=== PATIENT | female | born 1940 | race Caucasian/White ===

== ENCOUNTER 2018-08-06 17:15 | Inpatient (IN) | payer MEDICARE, BC | END 2018-08-11 15:35 | LOC: ER 17:15 → ED HOLD 21:19 → ORTHO 4S 08-07 20:00 | PROC: 0QSB34Z Reposition Right Lower Femur with Internal Fixation Device, Percutaneous Approach (ICD-10-PCS; principal; 2018-08-07 17:04) | DX: S72.001A Fracture of unspecified part of neck of right femur, initial encounter for closed fracture (principal); H83.02 Labyrinthitis, left ear; H81.12 Benign paroxysmal vertigo, left ear ==

== ENCOUNTER 2022-01-03 08:47 | Inpatient (IN) | payer MEDICARE, BC ==
[2022-01-01 15:05] LABS: BASOPHILS % (AUTO) 0.6 % (0-1); EOSINOPHILS % (AUTO) 0.2 % (0-6); LYMPHOCYTES # (AUTO) 1.3 X10'3 (1.1-4.8); LYMPHOCYTES % (AUTO) 35.3 % (21-51); MEAN CORPUSCULAR HEMOGLOBIN 29.7 PG (27.0-31.0); MEAN CORPUSCULAR HGB CONC 34.4 g/dL (33.0-36.5); MEAN CORPUSCULAR VOLUME 86.5 FL (78-98); MEAN PLATELET VOLUME 8.4 FL (7.4-10.4); MONOCYTES # (AUTO) 0.8 X10'3 (0-0.9); MONOCYTES % (AUTO) 20.6 % (2-12); NEUTROPHILS # (AUTO) 1.6 X10'3 (1.8-7.7); NEUTROPHILS % (AUTO) 43.3 % (42-75); PRE OP HEMOGLOBIN 14.1 g/dL (12.0-16.0); PRE OP PLATELET COUNT 175 X10'3 (140-440); RED BLOOD COUNT 4.75 X10'6 (4.20-5.60); RED CELL DISTRIBUTION WIDTH 13.4 % (11.5-14.5)
[2022-01-01 15:22] LABS: ALBUMIN 3.9 G/DL (3.4-5.0); ALBUMIN/GLOBULIN RATIO 1.1 (1.1-1.5); ALKALINE PHOSPHATASE 66 IU/L (46-116); BLOOD UREA NITROGEN 15 MG/DL (7-18); BUN/CREATININE RATIO 25.4 (6.6-38.0); CHLORIDE 103 MMOL/L (99-107); CREATININE 0.59 MG/DL (0.40-0.90); PRE OP ALT 17 U/L (30-65); PRE OP ANION GAP 10 (8-16); PRE OP AST 17 U/L (10-37); PRE OP BILIRUB, TOTAL 0.4 MG/DL (0.0-1.0); PRE OP GLUCOSE 108 MG/DL (70-104); PRE OP POTASSIUM 3.4 MMOL/L (3.4-5.1); PRE OP SODIUM 138 MMOL/L (135-145); TOTAL CARBON DIOXIDE 24.9 MMOL/L (24-32); TOTAL PROTEIN 7.3 G/DL (6.4-8.2); eGFR > 90 ML/MIN
[~2022-01-03] VITALS: Ht 152.4 cm; Wt 60.0 kg
[2022-01-03] VITALS (11 sets, daily range): BP systolic 125–151; BP diastolic 66–95
[~2022-01-03 08:47] MED LIST: ACET-812 PO; CHOL10002 PO; HYDROcodone/acetaminophen 10/325mg tab PO PRN; HYDROmorphone 1 mg/ml syringe IV PRN; HYDROmorphone inj. 0.5 MG/0.5 ML DISP.SYRIN IV PRN; LEVO75TA PO; ROPIVAcaine 0.5% (5mg/ml) 30ml vial ONE; ROSU5TAB PO; acetaminophen 325mg tablet PO ONE; acetaminophen 325mg tablet PO PRN; bisacodyl 10mg suppository rectal RC PRN; ceFAZolin inj. 2,000 MG in dextrose 5%-water 100 ML IV ONE; celeCOXIB 100mg capsule PO ONE; diphenhydrAMINE 25mg capsule PO PRN; epiNEPHrine 1 mg/ml inj ONE; famotidine 20mg tablet PO ONE; gabapentin 300mg capsule PO ONE; ketorolac trometh. 30mg/ml inj. ONE; magnesium hydroxide 30ml (MOM) UD suspension PO PRN; metoclopramide 5 mg/ml inj IV ONE; naloxone 0.4 mg/ml inj IV PRN; oxyCODONE SR 10mg (sust. release) tab -2 tabs (20mg) PO ONE; ringers solution, lacted 1,000 ML IV SCH; tranexamic acid inj. 1,000 MG in 0.7% saline 100 ML PMX IV ONE; vancomycin 1,000mg inj ONE; vancomycin/NS 1 GM in NS 250 ML IV ONE
--- NOTE | 2022-01-03 09:45 | NUR ---
PT PREPPED FOR SURGERY, IV STARTED IN RIGHT HAND, MULTIPLE SMALL RASHES, LESIONS NOTED ON BOTH ARMS AND OPERATIVE LEG. NO OPEN AREAS. PEDAL PULSES MARKED, BILATERAL LEGS ARE PALE, WARM AND DRY, SENSATION INTACT. PT USES A WALKER TO AMBULATE. AT BEDSIDE. PT IS ALLERGIC TO VANCOMYCIN AND PCN, PHYSICIAN AND ANESTHESIOLOGIST NOTIFIED, AWAITING ORDERS
--- NOTE | 2022-01-03 10:45 | NUR ---
CALLED INTO THE OPERATING ROOM AFTER SPEAKING TO WILLY THE OR CHARGE NURSE, SPOKE WITH TAYLOR KENNEDY, NOTIFIED HER OF THIS PATIENTS ALLERGIES AND REQUESTED NEW ANTIBIOTIC ORDERS, AWAITING ORDERS
--- NOTE | 2022-01-03 11:26 | NUR ---
ORDERS RECEIVED TO ADMINISTER PREOP VANCO AND TO SEND ANCEF TO THE OPERATING ROOM. VANCO STARTED, SIGNS AND SYMPTOMS OF REACTION GIVEN TO PATIENT AND . INFORMED THEM TO NOTIFIY ME IMMEDIATELY IF SHE HAS ANY SIGNS OF AN ALLERGIC REACTION
[2022-01-03] MEDS ORDERED: ROPIVAcaine 0.5% (5mg/ml) 30ml vial ONE (12:32)
--- NOTE | 2022-01-03 12:45 | NUR ---
PAATIENT SEEN BY ALL PARTIES, OXYCODONE GIVEN AFTER CONSENTS SIGNED
[2022-01-03] MEDS ORDERED: fentaNYL/PF 50MCG/1 ML 2ML syringe ONE (12:57)
[2022-01-03] MEDS ORDERED: MIDAZolam 1 MG/ML 5ML VIAL ONE (12:58)
[2022-01-03] MEDS ORDERED: ondansetron/PF 4mg/2ml inj IV PRN (13:45)
[2022-01-03] MEDS ORDERED: morphine 4 MG/ML inj SYRINge IV PRN (13:45)
[2022-01-03] MEDS ORDERED: morphine 2 MG/ML inj. syringe IV PRN (13:45)
[2022-01-03] MEDS ORDERED: ROPIVAcaine 0.2% (10 MG/5 ML) BOLUS INJECTION ADDCANAL PRN (13:45)
[2022-01-03] MEDS ORDERED: meperidine/PF 25mg/ml syringe IV PRN ×3 (13:45)
[2022-01-03] MEDS ORDERED: proCHLORperazine 10 MG/2 ml inj IV PRN (13:45)
[2022-01-03] MEDS ORDERED: ringers solution, lacted 1,000 ML IV SCH (13:45)
--- NOTE | 2022-01-03 14:46 | NUR ---
PT ARRIVES FROM OR ON HOSPITAL BED. REPORT FROM BUCKY GANDHI, AAOX4 WITH NO COMPLAINTS OF PAIN. VSS. RIGHT KNEE DRESSING CLEAN DRY AND INTACT. ICE ON SURGICAL KNEE. PT VERBALIZING NEEDS. Addendum: 01/03/22 at 1504 by Justin Herrera RN Amended: Links added.
--- NOTE | 2022-01-03 15:50 | NUR ---
received report from BRENT Anderson. awaiting patient arrival.
[2022-01-03] MEDS ORDERED: ceFAZolin/D5W- 1GM premix 50 ML IV SCH (16:00)
--- NOTE | 2022-01-03 16:00 | NUR ---
Patient arrived to floor. VSS. no complaints of pain.
--- NOTE | 2022-01-03 16:06 | NUR ---
Report called to receiving nurse IGOR KENNEDY. Transferred via HOSPITAL BED, ALL BELONGINGS WITH PT UPON DELIVERY. AT BEDSIDE. PT DENIES PAIN, VSS. CALL LIGHT WITHIN REACH AND BED LOW. RECEIVING STAFF AT BEDSIDE TO RECEIVE PT. Special Issues communicated to receiving nurse. Addendum: 01/03/22 at 1619 by Justin Herrera RN Amended: Links added.
[2022-01-03] MEDS: potassium cl 20mEq in 1/2 NS 1,000 ML IV SCH ×3 (16:44→17:58)
[2022-01-03] MEDS: ROPIVAcaine 0.2%/PF PUMP/bolus 545 ML ADDCANAL SCH (17:16)
[2022-01-03] MEDS ORDERED: tranexamic acid inj. 600 MG in normal saline 100ml IV soln 94 ML IV ONE (18:00)
--- NOTE | 2022-01-03 18:21 | NUR ---
Problems reprioritized. Patient report given, questions answered & plan of care reviewed with BRENT Franklin.
[2022-01-03] MEDS ORDERED: vancomycin/NS 1 GM ADD-VANTAGE 250 ML IV SCH (20:00)
[2022-01-03] MEDS: ascorbic acid 500mg tablet PO SCH (20:31)
[2022-01-03] MEDS: sennosides 8.6mg tablet PO SCH (20:31)
[2022-01-03] MEDS: celeCOXIB 100mg capsule PO SCH (20:31)
[2022-01-03] MEDS: gabapentin 300mg capsule PO SCH (20:31)
[2022-01-03] MEDS: ceFAZolin/D5W- 1GM premix 50 ML IV SCH (22:23)
[2022-01-03] MEDS: HYDROcodone/acetaminophen 10/325mg tab PO PRN (22:37)
[2022-01-04 02:00] VITALS: BP 144/60
[2022-01-04] MEDS: ondansetron/PF 4mg/2ml inj IV PRN ×2 (02:12→08:49)
[2022-01-04] MEDS: ceFAZolin/D5W- 1GM premix 50 ML IV SCH (05:15)
[2022-01-04] MEDS: potassium cl 20mEq in 1/2 NS 1,000 ML IV SCH ×2 (05:15→16:26)
[2022-01-04] MEDS: HYDROcodone/acetaminophen 10/325mg tab PO PRN (05:18)
--- NOTE | 2022-01-04 06:16 | NUR ---
Received patient report from BRENT Franklin.
--- NOTE | 2022-01-04 06:30 | NUR ---
Rec'd report from JUDD Landa, jay/ opportunity to ask and answer questions.
--- NOTE | 2022-01-04 07:10 | NUR ---
At bedside w/ Syeda, SUPERVISOR [employer] MACHINE, and concur w/ shift assessment as documented.
[2022-01-04 07:42] LABS: BASOPHILS % (AUTO) 0.2 % (0-1); EOSINOPHILS % (AUTO) 0.2 % (0-6); HEMATOCRIT 38.7 % (35.0-45.0); HEMOGLOBIN 13.4 g/dl (12.0-16.0); LYMPHOCYTES # (AUTO) 0.6 X10'3 (1.1-4.8); LYMPHOCYTES % (AUTO) 13.4 % (21-51); MEAN CORPUSCULAR HEMOGLOBIN 30.3 PG (27.0-31.0); MEAN CORPUSCULAR HGB CONC 34.6 g/dL (33.0-36.5); MEAN CORPUSCULAR VOLUME 87.5 FL (78-98); MEAN PLATELET VOLUME 8.6 FL (7.4-10.4); MONOCYTES # (AUTO) 1.1 X10'3 (0-0.9); NEUTROPHILS # (AUTO) 2.9 X10'3 (1.8-7.7); NEUTROPHILS % (AUTO) 63.2 % (42-75); PLATELET COUNT 136 X10'3 (140-440); RED BLOOD COUNT 4.42 X10'6 (4.20-5.60); RED CELL DISTRIBUTION WIDTH 13.5 % (11.5-14.5); WHITE BLOOD COUNT 4.6 X10'3 (4.5-11.0)
[2022-01-04 07:58] LABS: ANION GAP 8 (8-16); CHLORIDE 103 MMOL/L (99-107); SODIUM 136 MMOL/L (135-145); TOTAL CARBON DIOXIDE 24.8 MMOL/L (24-32)
[2022-01-04 08:31] LABS: PLATELET ESTIMATE DECREASED; TOTAL CELLS COUNTED 100
[2022-01-04] MEDS: celeCOXIB 100mg capsule PO SCH ×2 (08:58→20:14)
[2022-01-04] MEDS: atorvastatin 20mg tablet PO SCH (08:58)
[2022-01-04] MEDS: multivitamins, therapeutics tablet PO SCH (08:58)
[2022-01-04] MEDS: gabapentin 300mg capsule PO SCH ×3 (08:58→20:13)
[2022-01-04] MEDS: levoTHYROXINE 75mcg tablet PO SCH (08:58)
[2022-01-04] MEDS: ascorbic acid 500mg tablet PO SCH ×2 (08:59→20:13)
[2022-01-04] MEDS: aspirin 325mg tablet PO SCH (09:01)
[2022-01-04 10:00] VITALS: BP 147/67
--- NOTE | 2022-01-04 10:46 | NUR ---
Joint surgery consult: Pt s/p R knee surgery this admit per EMR. Pt/SO seen by STONEY for written/verbal high protein diet ed w/ RD contact information provided. RD encouraged pt/SO to contact dietitian's office if further questions/concerns. Addendum: 01/04/22 at [address] Amended: Links added. Addendum: 01/04/22 at [address] Joint surgery consult: Pt s/p R knee surgery this admit per EMR. Pt/SO seen by STONEY for written/verbal high protein diet ed w/ RD contact information provided. RD encouraged pt/SO to contact dietitian's office if further questions/concerns. Pt does report nausea this AM requests broth, crackers, applesauce, and fresh fruit [facility] today; dietary notified.
[2022-01-04] MEDS ORDERED: proCHLORperazine 10 MG/2 ml inj IV PRN (11:45)
[2022-01-04] MEDS ORDERED: normal saline 500ml IV soln 1,000 ML IV ONE (14:20)
--- NOTE | 2022-01-04 14:20 | NUR ---
Assessed patient after staff returned her to bed. Hypotensive 90/54. Patient asked if she had a stroke. Neuro assessment negative for deficits. 250ml NS fluid bolus initiated per shock protocol. Will reassess.
--- NOTE | 2022-01-04 16:15 | NUR ---
Reassess patient with RN with BP of 137/64 and HR of 81, NS IV fluid running at 50ml. Physical therapy tried to work with patient who needed extensive assist to sit on the side of bed. Patient denied being nauseated and did not want to walk, stating she was tired. Wick was placed after attempting to use the bed [place] with no success.
[2022-01-04 18:00] VITALS: BP 138/79
--- NOTE | 2022-01-04 18:20 | NUR ---
Patient in room ORTHO 4013. I have received report from JUDD Landa and had the opportunity to ask questions and assume patient care.
--- NOTE | 2022-01-04 18:25 | NUR ---
Patient report was given to BRENT Garcia.
[2022-01-04] MEDS: sennosides 8.6mg tablet PO SCH (20:13)
[2022-01-04 22:00] VITALS: BP 131/72
[2022-01-05 06:00] VITALS: BP 136/76
[2022-01-05 06:38] LABS: BASOPHILS % (AUTO) 0.2 % (0-1); EOSINOPHILS % (AUTO) 0.2 % (0-6); HEMATOCRIT 34.8 % (35.0-45.0); HEMOGLOBIN 12.3 g/dl (12.0-16.0); LYMPHOCYTES # (AUTO) 1.2 X10'3 (1.1-4.8); LYMPHOCYTES % (AUTO) 20.2 % (21-51); MEAN CORPUSCULAR HEMOGLOBIN 30.6 PG (27.0-31.0); MEAN CORPUSCULAR HGB CONC 35.3 g/dL (33.0-36.5); MEAN CORPUSCULAR VOLUME 86.7 FL (78-98); MEAN PLATELET VOLUME 8.9 FL (7.4-10.4); MONOCYTES # (AUTO) 1.6 X10'3 (0-0.9); MONOCYTES % (AUTO) 27.7 % (2-12); NEUTROPHILS % (AUTO) 51.7 % (42-75); PLATELET COUNT 129 X10'3 (140-440); RED BLOOD COUNT 4.01 X10'6 (4.20-5.60); RED CELL DISTRIBUTION WIDTH 13.2 % (11.5-14.5); WHITE BLOOD COUNT 5.9 X10'3 (4.5-11.0)
[2022-01-05] MEDS: potassium cl 20mEq in 1/2 NS 1,000 ML IV SCH (06:47)
--- NOTE | 2022-01-05 06:47 | NUR ---
Patient in room ORTHO 4013. I have received report from Radha KENNEDY and had the opportunity to ask questions and assume patient care.
[2022-01-05 07:21] LABS: PLATELET ESTIMATE DECREASED; SMUDGE CELLS FEW; TOTAL CELLS COUNTED 100
[2022-01-05] MEDS: multivitamins, therapeutics tablet PO SCH (08:53)
[2022-01-05] MEDS: aspirin 325mg tablet PO SCH (08:53)
[2022-01-05] MEDS: atorvastatin 20mg tablet PO SCH (08:54)
[2022-01-05] MEDS: ascorbic acid 500mg tablet PO SCH ×2 (08:54→21:30)
[2022-01-05] MEDS: celeCOXIB 100mg capsule PO SCH ×2 (08:54→21:30)
[2022-01-05] MEDS: levoTHYROXINE 75mcg tablet PO SCH (08:54)
[2022-01-05] MEDS: gabapentin 300mg capsule PO SCH ×3 (08:54→21:31)
[2022-01-05] MEDS: ROPIVAcaine 0.2%/PF PUMP/bolus 545 ML ADDCANAL SCH (08:55)
[2022-01-05 10:00] VITALS: BP 144/67
[2022-01-05] MEDS ORDERED: acetaminophen 325mg tablet PO PRN ×2 (13:40)
[2022-01-05] MEDS ORDERED: traMADol 50MG tablet PO PRN ×2 (13:40)
--- NOTE | 2022-01-05 18:17 | NUR ---
Problems reprioritized. Patient report given, questions answered & plan of care reviewed with Olga KENNEDY.
[2022-01-05 18:20] VITALS: BP 133/57
--- NOTE | 2022-01-05 18:20 | NUR ---
Patient in room ORTHO 4013. I have received report from BRENT Bansal and had the opportunity to ask questions and assume patient care. Pt sitting up in recliner eating dinner. Addendum: 01/05/22 at 2333 by Chichi Snyder RN Amended: Links added.
[2022-01-05] MEDS: sennosides 8.6mg tablet PO SCH (21:31)
[2022-01-05 22:30] VITALS: BP 145/61
[2022-01-06 06:00] VITALS: BP 134/57
--- NOTE | 2022-01-06 06:08 | NUR ---
Problems reprioritized. Patient report given, questions answered & plan of care reviewed with BRENT Sanders. Addendum: 01/06/22 at 0608 by Chichi Snyder RN Amended: Links added.
[2022-01-06 06:11] LABS: BASOPHILS % (AUTO) 0.4 % (0-1); EOSINOPHILS % (AUTO) 0.2 % (0-6); MEAN CORPUSCULAR HEMOGLOBIN 30.7 PG (27.0-31.0); MEAN CORPUSCULAR HGB CONC 35.4 g/dL (33.0-36.5); MEAN CORPUSCULAR VOLUME 86.7 FL (78-98); MONOCYTES # (AUTO) 1.8 X10'3 (0-0.9); MONOCYTES % (AUTO) 20.9 % (2-12); NEUTROPHILS # (AUTO) 5.8 X10'3 (1.8-7.7); NEUTROPHILS % (AUTO) 66.5 % (42-75); PLATELET COUNT 141 X10'3 (140-440); RED BLOOD COUNT 3.92 X10'6 (4.20-5.60); RED CELL DISTRIBUTION WIDTH 13.6 % (11.5-14.5); WHITE BLOOD COUNT 8.7 X10'3 (4.5-11.0)
--- NOTE | 2022-01-06 06:25 | NUR ---
Patient in room ORTHO 4013. I have received report from TESSA KENNEDY and had the opportunity to ask questions and assume patient care.
[2022-01-06 07:19] LABS: PLATELET ESTIMATE DECREASED; TOTAL CELLS COUNTED 100
[2022-01-06] MEDS: atorvastatin 20mg tablet PO SCH (08:08)
[2022-01-06] MEDS: celeCOXIB 100mg capsule PO SCH ×2 (08:08→20:43)
[2022-01-06] MEDS: gabapentin 300mg capsule PO SCH ×3 (08:08→20:44)
[2022-01-06] MEDS: multivitamins, therapeutics tablet PO SCH (08:08)
[2022-01-06] MEDS: levoTHYROXINE 75mcg tablet PO SCH (08:08)
[2022-01-06] MEDS: ascorbic acid 500mg tablet PO SCH ×2 (08:08→20:43)
[2022-01-06] MEDS: aspirin 325mg tablet PO SCH (08:08)
[2022-01-06 10:00] VITALS: BP 105/55
[2022-01-06 18:00] VITALS: BP 145/67
--- NOTE | 2022-01-06 18:39 | NUR ---
Problems reprioritized. Patient report given, questions answered & plan of care reviewed with GAYLE KENNEDY.
[2022-01-06] MEDS: sennosides 8.6mg tablet PO SCH (20:44)
[2022-01-06 22:00] VITALS: BP 141/66
[2022-01-07 06:00] VITALS: BP 127/63
--- NOTE | 2022-01-07 06:11 | NUR ---
Problems reprioritized. Patient report given, questions answered & plan of care reviewed with BRENT NATHAN.
--- NOTE | 2022-01-07 06:20 | NUR ---
received report from laverne tee
[2022-01-07] MEDS: levoTHYROXINE 75mcg tablet PO SCH (08:41)
[2022-01-07] MEDS: celeCOXIB 100mg capsule PO SCH (08:41)
[2022-01-07] MEDS: atorvastatin 20mg tablet PO SCH (08:41)
[2022-01-07] MEDS: gabapentin 300mg capsule PO SCH ×2 (08:41→12:57)
[2022-01-07] MEDS: multivitamins, therapeutics tablet PO SCH (08:42)
[2022-01-07] MEDS: ascorbic acid 500mg tablet PO SCH (08:42)
[2022-01-07] MEDS: aspirin 325mg tablet PO SCH (08:43)
[2022-01-07 10:00] VITALS: BP 119/50
--- NOTE | 2022-01-07 14:44 | NUR ---
GAVE REPORT TO BRENT KAY AT [facility], [place] ALL BELONGINGS[place] BY [facility] PERSONNEL TO GO TO [facility]
== END 2022-01-07 14:42 | DRG 470 ==
LOC: PAS 08:47 → PAS IN 09:29 → ORTHO 4S 16:00
PROVIDERS: ADMIT Orthopaedic Surgery; ATTEND Orthopaedic Surgery
PROC: 3E0T3BZ Introduction of Anesthetic Agent into Peripheral Nerves and Plexi, Percutaneous Approach (ICD-10-PCS; 2022-01-03)
PROC: 3E0T33Z Introduction of Anti-inflammatory into Peripheral Nerves and Plexi, Percutaneous Approach (ICD-10-PCS; 2022-01-03)
PROC: 0SRC0J9 Replacement of Right Knee Joint with Synthetic Substitute, Cemented, Open Approach (ICD-10-PCS; principal; 2022-01-03 12:56)
DX: M17.11 Unilateral primary osteoarthritis, right knee (principal); Z20.822 Contact with and (suspected) exposure to COVID-19; E03.9 Hypothyroidism, unspecified; I10 Essential (primary) hypertension; Z79.82 Long term (current) use of aspirin; Z79.890 Hormone replacement therapy; R11.2 Nausea with vomiting, unspecified
CPT/HCPCS: 36415; 71046; 73560; 80051; 80053; 82948; 85007; 85025; 86885; 86900; 86901; 87081; 93005; 97110; 97116; 97161; 97530; 97535; A4215; A4615; A6212; A6213; A6222; A6449; A7000; C1713; C1758; C1776; G0378; J0171; J0690; J0780; J1885; J2250; J2405; J2765; J2795; J3010; J3370; J3480; J3490; J7040; J7060; J7120

== ENCOUNTER 2022-01-27 03:19 | Emergency (ER) | payer MEDICARE, BC ==
[~2022-01-27] VITALS: Ht 152.4 cm; Wt 6.0 kg
[~2022-01-27 03:19] MED LIST changes: -HYDROcodone/acetaminophen 10/325mg tab PO PRN; -HYDROmorphone 1 mg/ml syringe IV PRN; -HYDROmorphone inj. 0.5 MG/0.5 ML DISP.SYRIN IV PRN; -ROPIVAcaine 0.5% (5mg/ml) 30ml vial ONE; -acetaminophen 325mg tablet PO ONE; -acetaminophen 325mg tablet PO PRN; -bisacodyl 10mg suppository rectal RC PRN; -ceFAZolin inj. 2,000 MG in dextrose 5%-water 100 ML IV ONE; -celeCOXIB 100mg capsule PO ONE; -diphenhydrAMINE 25mg capsule PO PRN; -epiNEPHrine 1 mg/ml inj ONE; -famotidine 20mg tablet PO ONE; -gabapentin 300mg capsule PO ONE; -ketorolac trometh. 30mg/ml inj. ONE; -magnesium hydroxide 30ml (MOM) UD suspension PO PRN; -metoclopramide 5 mg/ml inj IV ONE; -naloxone 0.4 mg/ml inj IV PRN; -oxyCODONE SR 10mg (sust. release) tab -2 tabs (20mg) PO ONE; -ringers solution, lacted 1,000 ML IV SCH; -tranexamic acid inj. 1,000 MG in 0.7% saline 100 ML PMX IV ONE; -vancomycin 1,000mg inj ONE; -vancomycin/NS 1 GM in NS 250 ML IV ONE
[2022-01-27 03:31] VITALS: BP 153/73
[2022-01-27 06:01] LABS: CLARITY,URINE CLEAR (Clear); COLOR,URINE YELLOW (Yellow); GLUCOSE, URINE NEGATIVE (Neg); KETONES,URINE NEGATIVE (Neg); LEUKOCYTE ESTERASE ,URINE NEGATIVE (Neg); NITRITES, URINE NEGATIVE (Neg); OCCULT BLOOD,URINE NEGATIVE (Neg); PROTEIN,URINE NEGATIVE (Neg); UROBILINOGEN,URINE 0.2 E.U/dL (0.2-1.0)
[2022-01-27 06:02] LABS: UA COLLECTION TYPE CLN CATCH MIDSTREAM
== END 2022-01-27 11:22 | disposition home or self-care (01) ==
LOC: ER 03:19
DX: M54.50 Low back pain, unspecified (principal); E78.00 Pure hypercholesterolemia, unspecified; I10 Essential (primary) hypertension; K21.9 Gastro-esophageal reflux disease without esophagitis; G89.29 Other chronic pain; Z90.89 Acquired absence of other organs; Z90.710 Acquired absence of both cervix and uterus; Z98.890 Other specified postprocedural states; Z88.1 Allergy status to other antibiotic agents; Z88.8 Allergy status to other drugs, medicaments and biological substances; Z88.5 Allergy status to narcotic agent; Z88.0 Allergy status to penicillin; Z79.899 Other long term (current) drug therapy; W19.XXXA Unspecified fall, initial encounter; Y93.89 Activity, other specified; Y92.89 Other specified places as the place of occurrence of the external cause; Y99.8 Other external cause status
CPT/HCPCS: 72131; 72192; 81003; 99284

== ENCOUNTER 2022-04-02 02:49 | Emergency (ER) | payer MEDICARE, BC ==
[~2022-04-02] VITALS: Ht 160 cm; Wt 59.1 kg
[2022-04-02 02:52] VITALS: BP 178/137
[2022-04-02] MEDS ORDERED: HYDROcodone/acetaminophen 5mg/325mg tablet PO ONE (03:40)
[2022-04-02] MEDS ORDERED: HYDR-3965 PO (04:02)
== END 2022-04-02 04:23 | disposition home or self-care (01) ==
LOC: ER 02:50
DX: M79.662 Pain in left lower leg (principal); E78.00 Pure hypercholesterolemia, unspecified; K21.9 Gastro-esophageal reflux disease without esophagitis; G89.29 Other chronic pain; Z90.89 Acquired absence of other organs; Z90.710 Acquired absence of both cervix and uterus; Z98.890 Other specified postprocedural states; Z88.1 Allergy status to other antibiotic agents; Z88.0 Allergy status to penicillin; Z88.5 Allergy status to narcotic agent; Z79.899 Other long term (current) drug therapy
CPT/HCPCS: 99283

== ENCOUNTER 2022-04-04 13:26 | Emergency (ER) | payer MEDICARE, BC ==
[~2022-04-04] VITALS: Ht 152.4 cm; Wt 59.1 kg
[~2022-04-04 13:26] MED LIST changes: +HYDR-3965 PO
[2022-04-04] MEDS ORDERED: normal saline 1000ML IV soln IVB ONE (19:50)
[2022-04-04] MEDS ORDERED: normal saline 1000ml 1,000 ML IV ONE (19:50)
[2022-04-04] MEDS ORDERED: haloperidol lactate 5mg/ml inj IM ONE (19:55)
[2022-04-04 20:36] LABS: BASOPHILS % (AUTO) 0.3 % (0-1); EOSINOPHILS % (AUTO) 0.5 % (0-6); HEMATOCRIT 41.7 % (35.0-45.0); HEMOGLOBIN 14.1 g/dl (12.0-16.0); LYMPHOCYTES # (AUTO) 1.4 X10'3 (1.1-4.8); LYMPHOCYTES % (AUTO) 41.8 % (21-51); MEAN CORPUSCULAR HEMOGLOBIN 29.2 PG (27.0-31.0); MEAN CORPUSCULAR HGB CONC 33.9 g/dL (33.0-36.5); MEAN CORPUSCULAR VOLUME 86.2 FL (78-98); MONOCYTES # (AUTO) 0.8 X10'3 (0-0.9); NEUTROPHILS # (AUTO) 1.1 X10'3 (1.8-7.7); NEUTROPHILS % (AUTO) 33.4 % (42-75); PLATELET COUNT 161 X10'3 (140-440); RED BLOOD COUNT 4.83 X10'6 (4.20-5.60); RED CELL DISTRIBUTION WIDTH 13.2 % (11.5-14.5); WHITE BLOOD COUNT 3.4 X10'3 (4.5-11.0)
[2022-04-04 20:46] LABS: ALANINE AMINOTRANSFERASE 16 U/L (12-78); ALBUMIN 4.2 G/DL (3.4-5.0); ALBUMIN/GLOBULIN RATIO 1.3 (1.1-1.5); ALKALINE PHOSPHATASE 68 IU/L (46-116); ANION GAP 10 (8-16); ASPARTATE AMINO TRANSFERASE 18 U/L (10-37); BILIRUBIN,TOTAL 0.4 MG/DL (0.1-1.0); BLOOD UREA NITROGEN 12 MG/DL (7-18); BUN/CREATININE RATIO 20.7 (6.6-38.0); CALCIUM 9.3 MG/DL (8.5-10.1); CHLORIDE 100 MMOL/L (99-107); CREATININE 0.58 MG/DL (0.40-0.90); GLUCOSE 93 MG/DL (70-104); POTASSIUM 3.8 MMOL/L (3.5-5.1); SODIUM 140 MMOL/L (135-145); TOTAL CARBON DIOXIDE 29.6 MMOL/L (24-32); TOTAL PROTEIN 7.5 G/DL (6.4-8.2); eGFR > 90 ML/MIN
[2022-04-04 20:55] LABS: CREATINE KINASE 45 U/L (26-192); ETHANOL < 0.010 GM/DL (0.0-0.010); LIPASE 122 U/L (73-393); MAGNESIUM 2.1 MG/DL (1.5-2.4); PHOSPHORUS 3.5 MG/DL (2.3-4.5)
--- NOTE | 2022-04-04 21:16 | NUR ---
Patient removed from brief from home. Pure wick placed, new brief placed to assist in the effectiveness of purewick.
[2022-04-04 21:35] LABS: PLATELET ESTIMATE NORMAL; TOTAL CELLS COUNTED 100
[2022-04-04 22:15] VITALS: BP 157/69
== END 2022-04-04 23:31 | disposition home or self-care (01) ==
LOC: ER 13:26
DX: R53.1 Weakness (principal); E78.00 Pure hypercholesterolemia, unspecified; I10 Essential (primary) hypertension; K21.9 Gastro-esophageal reflux disease without esophagitis; G89.29 Other chronic pain; Z90.89 Acquired absence of other organs; Z90.710 Acquired absence of both cervix and uterus; Z98.890 Other specified postprocedural states; Z88.1 Allergy status to other antibiotic agents; Z88.5 Allergy status to narcotic agent; Z88.0 Allergy status to penicillin; Z79.899 Other long term (current) drug therapy
CPT/HCPCS: 36415; 71045; 73560; 80053; 80320; 82550; 83690; 83735; 83874; 84100; 84145; 84443; 84484; 85007; 85025; 93005; 99285; J7030; J7040

== ENCOUNTER 2024-06-13 06:09 | Emergency (ER) | payer MEDICARE, BC ==
[~2024-06-13] VITALS: Ht 152.4 cm; Wt 51.8 kg
[~2024-06-13 06:09] MED LIST changes: -ACET-812 PO; +APRE30TA5 PO; -HYDR-3965 PO; +NOR5T PO; +PANT-47 PO
[2024-06-13] MEDS: traMADol 50MG tablet PO ONE (08:06)
[2024-06-13] MEDS ORDERED: TRAM50TA2 PO (09:23)
[2024-06-13 13:20] VITALS: BP 143/79; PULSE 91; RESP 16; TEMP 98.5; O2SAT 97
== END 2024-06-13 10:12 | disposition home or self-care (01) ==
LOC: ER 06:10
DX: S39.012A Strain of muscle, fascia and tendon of lower back, initial encounter (principal); E78.00 Pure hypercholesterolemia, unspecified; I10 Essential (primary) hypertension; K21.9 Gastro-esophageal reflux disease without esophagitis; G89.29 Other chronic pain; C7A.00 Malignant carcinoid tumor of unspecified site; Z88.0 Allergy status to penicillin; Z88.1 Allergy status to other antibiotic agents; Z88.5 Allergy status to narcotic agent; Z88.6 Allergy status to analgesic agent; Z90.49 Acquired absence of other specified parts of digestive tract; Z90.710 Acquired absence of both cervix and uterus; X58.XXXA Exposure to other specified factors, initial encounter; Y93.89 Activity, other specified; Y92.89 Other specified places as the place of occurrence of the external cause; Y99.8 Other external cause status
CPT/HCPCS: 72128; 72131; 99284

== ENCOUNTER 2024-06-18 07:05 | Inpatient (IN) | payer MEDICARE, BC ==
[~2024-06-18] VITALS: Ht 167.6 cm; Wt 52.3 kg
[~2024-06-18 07:05] MED LIST changes: +TRAM50TA2 PO
[2024-06-18] MEDS ORDERED: sodium polystyrene sulfonate ENEMA 30gm/120ml RC ONE (09:20)
[2024-06-18] MEDS: lactulose 20gm/30ml cup PO ONE (11:01)
[2024-06-18] MEDS ORDERED: LACT10SO7 PO (13:19)
[2024-06-18] MEDS ORDERED: magnesium sulf-water 4G/100mL 100 ML IV PRN (14:20)
[2024-06-18] MEDS ORDERED: magnesium Cl slow-release 64mg tablet PO PRN (14:20)
[2024-06-18] MEDS ORDERED: mag hydrox/Alum hydrox/simeth 30ml oral suspension PO PRN (14:20)
[2024-06-18] MEDS ORDERED: potassium Cl 40MEQ/1/2NS 520ml 520 ML IV PRN (14:20)
[2024-06-18] MEDS ORDERED: potassium Cl 20 mEq SR tablet PO PRN ×2 (14:20)
[2024-06-18] MEDS ORDERED: magnesium sulf-water 2g/50mL 50 ML IV PRN (14:20)
[2024-06-18] MEDS ORDERED: ondansetron/PF 4mg/2ml inj IV PRN (14:20)
[2024-06-18 14:49] LABS: BASOPHILS % (AUTO) 0.5 % (0-1); EOSINOPHILS % (AUTO) 0.4 % (0-6); HEMATOCRIT 33.2 % (35.0-45.0); HEMOGLOBIN 10.7 g/dl (12.0-16.0); LYMPHOCYTES # (AUTO) 0.9 X10'3 (1.1-4.8); LYMPHOCYTES % (AUTO) 31.4 % (21-51); MEAN CORPUSCULAR HEMOGLOBIN 23.6 PG (27.0-31.0); MEAN CORPUSCULAR HGB CONC 32.3 g/dL (33.0-36.5); MEAN CORPUSCULAR VOLUME 73.1 FL (78-98); MEAN PLATELET VOLUME 7.7 FL (7.4-10.4); MONOCYTES # (AUTO) 0.5 X10'3 (0-0.9); MONOCYTES % (AUTO) 17.3 % (2-12); NEUTROPHILS # (AUTO) 1.4 X10'3 (1.8-7.7); NEUTROPHILS % (AUTO) 50.4 % (42-75); PLATELET COUNT 360 X10'3 (140-440); RED BLOOD COUNT 4.55 X10'6 (4.20-5.60); RED CELL DISTRIBUTION WIDTH 18.9 % (11.5-14.5); WHITE BLOOD COUNT 2.8 X10'3 (4.5-11.0)
[2024-06-18 14:51] LABS: ALBUMIN 3.2 G/DL (3.4-5.0); ANION GAP 11 (8-16); BLOOD UREA NITROGEN 5 MG/DL (7-18); BUN/CREATININE RATIO 8.2 (10.0-20.0); CALCIUM 9.6 MG/DL (8.5-10.1); CHLORIDE 99 MMOL/L (99-107); CREATININE 0.61 MG/DL (0.40-0.90); GLUCOSE 97 MG/DL (70-104); POTASSIUM 3.6 MMOL/L (3.5-5.1); SODIUM 137 MMOL/L (135-145); eCRCL 56 ML/MIN; eGFR > 90 ML/MIN
[2024-06-18 15:19] LABS: TOTAL CELLS COUNTED 100
[2024-06-18 15:20] LABS: ANISOCYTOSIS 2+; HYPOCHROMASIA 1+; MICROCYTOSIS 1+; PLATELET ESTIMATE NORMAL
[2024-06-18 16:14] VITALS: BP 161/73; PULSE 85; TEMP 98.2; O2SAT 98
[2024-06-18 17:00] VITALS: RESP 16
[2024-06-18 18:00] VITALS: BP 144/99; PULSE 67; RESP 16; TEMP 98.3; O2SAT 93
[2024-06-18] MEDS: acetaminophen 325mg tablet PO PRN (18:03)
[2024-06-18] MEDS: K and/or MAG REPLACEMENT MC SCH (20:00)
[2024-06-18] MEDS: magnesium hydroxide 30ml (MOM) UD suspension PO PRN (20:48)
[2024-06-18] MEDS: docusate sod 100mg capsule PO SCH (20:49)
[2024-06-18] MEDS: heparin, porcine 5000 units/ml vial SQ SCH (20:49)
[2024-06-18] MEDS: mineral oil 133ml enema RC SCH (20:53)
[2024-06-18] MEDS: traMADol 50MG tablet PO PRN (22:11)
[2024-06-19 05:41] LABS: BASOPHILS % (AUTO) 0.3 % (0-1); EOSINOPHILS % (AUTO) 0.6 % (0-6); HEMATOCRIT 29.9 % (35.0-45.0); HEMOGLOBIN 9.7 g/dl (12.0-16.0); LYMPHOCYTES # (AUTO) 1.7 X10'3 (1.1-4.8); LYMPHOCYTES % (AUTO) 44.7 % (21-51); MEAN CORPUSCULAR HEMOGLOBIN 23.5 PG (27.0-31.0); MEAN CORPUSCULAR HGB CONC 32.4 g/dL (33.0-36.5); MEAN CORPUSCULAR VOLUME 72.5 FL (78-98); MEAN PLATELET VOLUME 7.5 FL (7.4-10.4); MONOCYTES # (AUTO) 0.7 X10'3 (0-0.9); MONOCYTES % (AUTO) 19.4 % (2-12); NEUTROPHILS # (AUTO) 1.3 X10'3 (1.8-7.7); PLATELET COUNT 330 X10'3 (140-440); RED BLOOD COUNT 4.11 X10'6 (4.20-5.60); RED CELL DISTRIBUTION WIDTH 18.9 % (11.5-14.5); WHITE BLOOD COUNT 3.8 X10'3 (4.5-11.0)
[2024-06-19 06:00] VITALS: BP 127/63; PULSE 64; RESP 14; TEMP 97.4; O2SAT 96
[2024-06-19 06:05] LABS: ALANINE AMINOTRANSFERASE 12 U/L (12-78); ALBUMIN 2.8 G/DL (3.4-5.0); ALBUMIN/GLOBULIN RATIO 0.6 (1.1-1.5); ALKALINE PHOSPHATASE 113 IU/L (46-116); ANION GAP 5 (8-16); ASPARTATE AMINO TRANSFERASE 15 U/L (10-37); BILIRUBIN,TOTAL 0.3 MG/DL (0.1-1.0); BLOOD UREA NITROGEN 7 MG/DL (7-18); BUN/CREATININE RATIO 11.7 (10.0-20.0); CALCIUM 8.5 MG/DL (8.5-10.1); CHLORIDE 98 MMOL/L (99-107); GLUCOSE 91 MG/DL (70-104); MAGNESIUM 2.1 MG/DL (1.5-2.4); POTASSIUM 3.6 MMOL/L (3.5-5.1); SODIUM 133 MMOL/L (135-145); THYROID STIMULATING HORMONE 3.64 ulU/ml (0.34-4.50); TOTAL PROTEIN 7.4 G/DL (6.4-8.2); eCRCL 57 ML/MIN; eGFR > 90 ML/MIN
[2024-06-19 10:00] VITALS: BP 144/63; PULSE 84; RESP 16; TEMP 98.1; O2SAT 93
[2024-06-19 18:00] VITALS: BP 136/75; PULSE 81; RESP 16; TEMP 98.2; O2SAT 95
[2024-06-19] MEDS: lactose-reduced food (Ensure Enlive) - 237ml bottle PO SCH (18:55)
[2024-06-19 19:27] LABS: % IRON SATURATION 8 % (11-46); IRON 20 UG/DL (49-151); TOTAL IRON BINDING CAPACITY 251 UG/DL (259-388)
[2024-06-19 20:00] VITALS: RESP 16; O2SAT 95
[2024-06-19] MEDS: APREMILAST 30 MG PO SCH (20:00)
[2024-06-19 22:00] VITALS: BP 144/71; PULSE 73; RESP 16; TEMP 98.3; O2SAT 96
[2024-06-20 02:51] LABS: BASOPHILS % (AUTO) 0.4 % (0-1); EOSINOPHILS % (AUTO) 0.6 % (0-6); HEMATOCRIT 29.9 % (35.0-45.0); HEMOGLOBIN 9.7 g/dl (12.0-16.0); LYMPHOCYTES # (AUTO) 1.7 X10'3 (1.1-4.8); LYMPHOCYTES % (AUTO) 41.4 % (21-51); MEAN CORPUSCULAR HEMOGLOBIN 23.5 PG (27.0-31.0); MEAN CORPUSCULAR HGB CONC 32.5 g/dL (33.0-36.5); MEAN CORPUSCULAR VOLUME 72.4 FL (78-98); MEAN PLATELET VOLUME 7.3 FL (7.4-10.4); MONOCYTES # (AUTO) 0.8 X10'3 (0-0.9); MONOCYTES % (AUTO) 19.7 % (2-12); NEUTROPHILS # (AUTO) 1.6 X10'3 (1.8-7.7); NEUTROPHILS % (AUTO) 37.9 % (42-75); PLATELET COUNT 326 X10'3 (140-440); RED BLOOD COUNT 4.13 X10'6 (4.20-5.60); RED CELL DISTRIBUTION WIDTH 18.4 % (11.5-14.5); WHITE BLOOD COUNT 4.2 X10'3 (4.5-11.0)
[2024-06-20 03:10] LABS: ALANINE AMINOTRANSFERASE 13 U/L (12-78); ALBUMIN 2.7 G/DL (3.4-5.0); ALBUMIN/GLOBULIN RATIO 0.6 (1.1-1.5); ALKALINE PHOSPHATASE 108 IU/L (46-116); ANION GAP 9 (8-16); ASPARTATE AMINO TRANSFERASE 16 U/L (10-37); BILIRUBIN,TOTAL 0.3 MG/DL (0.1-1.0); BLOOD UREA NITROGEN 8 MG/DL (7-18); BUN/CREATININE RATIO 12.9 (10.0-20.0); CALCIUM 8.7 MG/DL (8.5-10.1); CHLORIDE 98 MMOL/L (99-107); CREATININE 0.62 MG/DL (0.40-0.90); GLUCOSE 96 MG/DL (70-104); MAGNESIUM 2.1 MG/DL (1.5-2.4); POTASSIUM 3.6 MMOL/L (3.5-5.1); SODIUM 134 MMOL/L (135-145); TOTAL CARBON DIOXIDE 27.5 MMOL/L (24-32); TOTAL PROTEIN 7.4 G/DL (6.4-8.2); eCRCL 55 ML/MIN; eGFR > 90 ML/MIN
[2024-06-20 04:10] LABS: TOTAL CELLS COUNTED 100
[2024-06-20 04:12] LABS: ANISOCYTOSIS 2+; PLATELET ESTIMATE NORMAL
[2024-06-20 04:13] LABS: ELLIPTOCYTES 1+; MICROCYTOSIS 1+
[2024-06-20 04:14] LABS: LARGE PLATELETS FEW
[2024-06-20 06:00] VITALS: BP 131/65; PULSE 77; RESP 16; TEMP 98.5; O2SAT 95
[2024-06-20] MEDS: atorvastatin 20mg tablet PO SCH (08:00)
[2024-06-20] MEDS: amLODIPine 5mg tablet PO SCH (08:00)
[2024-06-20] MEDS: levoTHYROXINE 75mcg tablet PO SCH (09:04)
[2024-06-20] MEDS: cholecalciferol (vitamin D3) 1,000 unit (25mcg) tablet PO SCH (09:04)
[2024-06-20] MEDS: pantoprazole 40mg Tablet.DR PO SCH (09:05)
[2024-06-20 11:00] VITALS: BP 127/64; PULSE 82; RESP 16; TEMP 98.8; O2SAT 96
[2024-06-20 18:00] VITALS: BP 128/78; PULSE 86; RESP 20; TEMP 98.8; O2SAT 95
[2024-06-20 20:00] VITALS: RESP 20; O2SAT 95
[2024-06-20 22:00] VITALS: BP 129/68; PULSE 88; RESP 18; TEMP 99.4; O2SAT 96
[2024-06-21 06:13] LABS: BASOPHILS % (AUTO) 0.3 % (0-1); EOSINOPHILS % (AUTO) 0.4 % (0-6); HEMATOCRIT 29.1 % (35.0-45.0); HEMOGLOBIN 9.5 g/dl (12.0-16.0); LYMPHOCYTES # (AUTO) 1.4 X10'3 (1.1-4.8); LYMPHOCYTES % (AUTO) 32.8 % (21-51); MEAN CORPUSCULAR HEMOGLOBIN 23.6 PG (27.0-31.0); MEAN CORPUSCULAR HGB CONC 32.6 g/dL (33.0-36.5); MEAN CORPUSCULAR VOLUME 72.3 FL (78-98); MEAN PLATELET VOLUME 7.7 FL (7.4-10.4); MONOCYTES # (AUTO) 1.1 X10'3 (0-0.9); MONOCYTES % (AUTO) 25.8 % (2-12); NEUTROPHILS # (AUTO) 1.8 X10'3 (1.8-7.7); NEUTROPHILS % (AUTO) 40.7 % (42-75); PLATELET COUNT 316 X10'3 (140-440); RED BLOOD COUNT 4.03 X10'6 (4.20-5.60); RED CELL DISTRIBUTION WIDTH 18.4 % (11.5-14.5); WHITE BLOOD COUNT 4.4 X10'3 (4.5-11.0)
[2024-06-21 06:19] LABS: ALANINE AMINOTRANSFERASE 13 U/L (12-78); ALBUMIN 2.6 G/DL (3.4-5.0); ALBUMIN/GLOBULIN RATIO 0.6 (1.1-1.5); ALKALINE PHOSPHATASE 103 IU/L (46-116); ANION GAP 10 (8-16); ASPARTATE AMINO TRANSFERASE 13 U/L (10-37); BILIRUBIN,TOTAL 0.3 MG/DL (0.1-1.0); BLOOD UREA NITROGEN 6 MG/DL (7-18); CALCIUM 8.9 MG/DL (8.5-10.1); CHLORIDE 98 MMOL/L (99-107); GLUCOSE 104 MG/DL (70-104); MAGNESIUM 2.2 MG/DL (1.5-2.4); POTASSIUM 3.5 MMOL/L (3.5-5.1); SODIUM 134 MMOL/L (135-145); TOTAL CARBON DIOXIDE 26.1 MMOL/L (24-32); TOTAL PROTEIN 7.1 G/DL (6.4-8.2); eCRCL 68 ML/MIN; eGFR > 90 ML/MIN
[2024-06-21 07:00] VITALS: BP 128/80; PULSE 71; RESP 16; TEMP 99.2; O2SAT 94
[2024-06-21] MEDS: bisacodyl 10mg suppository rectal RC PRN (09:17)
[2024-06-21 12:00] VITALS: BP 121/52; PULSE 82; RESP 16; TEMP 98.3; O2SAT 91
[2024-06-21] MEDS: DICLOFENAC SODIUM 1% gel 1 APPLIC APPLIC TP PRN (12:57)
[2024-06-21 18:00] VITALS: BP 109/55; PULSE 73; RESP 16; TEMP 97.7; O2SAT 96
[2024-06-21 20:00] VITALS: RESP 16; O2SAT 96
[2024-06-21] MEDS: acetaminophen 325mg tablet PO PRN (20:25)
[2024-06-21 22:00] VITALS: BP 107/49; PULSE 62; RESP 12; TEMP 97.4; O2SAT 95
[2024-06-22 06:00] VITALS: BP 121/46; PULSE 70; RESP 14; TEMP 97.6; O2SAT 99
[2024-06-22 06:22] LABS: BASOPHILS % (AUTO) 0.3 % (0-1); EOSINOPHILS % (AUTO) 0.7 % (0-6); HEMATOCRIT 28.1 % (35.0-45.0); HEMOGLOBIN 9.2 g/dl (12.0-16.0); LYMPHOCYTES # (AUTO) 1.3 X10'3 (1.1-4.8); LYMPHOCYTES % (AUTO) 30.3 % (21-51); MEAN CORPUSCULAR HEMOGLOBIN 23.7 PG (27.0-31.0); MEAN CORPUSCULAR HGB CONC 32.6 g/dL (33.0-36.5); MEAN CORPUSCULAR VOLUME 72.7 FL (78-98); MEAN PLATELET VOLUME 7.7 FL (7.4-10.4); MONOCYTES # (AUTO) 0.9 X10'3 (0-0.9); MONOCYTES % (AUTO) 22.7 % (2-12); NEUTROPHILS # (AUTO) 1.9 X10'3 (1.8-7.7); PLATELET COUNT 298 X10'3 (140-440); RED BLOOD COUNT 3.87 X10'6 (4.20-5.60); RED CELL DISTRIBUTION WIDTH 18.4 % (11.5-14.5); WHITE BLOOD COUNT 4.2 X10'3 (4.5-11.0)
[2024-06-22 06:44] LABS: ALANINE AMINOTRANSFERASE 15 U/L (12-78); ALBUMIN 2.4 G/DL (3.4-5.0); ALBUMIN/GLOBULIN RATIO 0.5 (1.1-1.5); ALKALINE PHOSPHATASE 109 IU/L (46-116); ANION GAP 10 (8-16); ASPARTATE AMINO TRANSFERASE 19 U/L (10-37); BILIRUBIN,TOTAL 0.3 MG/DL (0.1-1.0); BLOOD UREA NITROGEN 9 MG/DL (7-18); BUN/CREATININE RATIO 16.1 (10.0-20.0); CHLORIDE 98 MMOL/L (99-107); CREATININE 0.56 MG/DL (0.40-0.90); GLUCOSE 97 MG/DL (70-104); MAGNESIUM 2.2 MG/DL (1.5-2.4); POTASSIUM 3.6 MMOL/L (3.5-5.1); SODIUM 134 MMOL/L (135-145); TOTAL CARBON DIOXIDE 26.1 MMOL/L (24-32); TOTAL PROTEIN 6.9 G/DL (6.4-8.2); eCRCL 61 ML/MIN; eGFR > 90 ML/MIN
[2024-06-22 07:54] VITALS: BP_SYST 121; PULSE 70
== END 2024-06-22 15:00 | DRG 563 ==
LOC: ER 07:06 → ED HOLD 14:22 → SUR 3N 15:50
PROVIDERS: ADMIT Internal Medicine; ATTEND Internal Medicine
DX: S39.012A Strain of muscle, fascia and tendon of lower back, initial encounter (principal); E44.0 Moderate protein-calorie malnutrition; Z68.1 Body mass index [BMI] 19.9 or less, adult; K59.00 Constipation, unspecified; E78.00 Pure hypercholesterolemia, unspecified; I10 Essential (primary) hypertension; Z66 Do not resuscitate; D50.8 Other iron deficiency anemias; M19.071 Primary osteoarthritis, right ankle and foot; E88.09 Other disorders of plasma-protein metabolism, not elsewhere classified; G89.29 Other chronic pain; K21.9 Gastro-esophageal reflux disease without esophagitis; X58.XXXA Exposure to other specified factors, initial encounter; Y93.89 Activity, other specified; Y92.89 Other specified places as the place of occurrence of the external cause; Y99.8 Other external cause status; Z90.49 Acquired absence of other specified parts of digestive tract; Z90.710 Acquired absence of both cervix and uterus; Z88.1 Allergy status to other antibiotic agents; Z88.5 Allergy status to narcotic agent; Z91.048 Other nonmedicinal substance allergy status; Z79.899 Other long term (current) drug therapy; T39.95XA Adverse effect of unspecified nonopioid analgesic, antipyretic and antirheumatic, initial encounter; T45.4X5A Adverse effect of iron and its compounds, initial encounter; Y92.9 Unspecified place or not applicable; Z72.89 Other problems related to lifestyle
CPT/HCPCS: 36415; 73120; 74018; 80048; 80053; 83540; 83550; 83735; 84443; 85007; 85025; 87081; 97161; 97530; 97535; 99285; A6449; G0378; J1644